=== PATIENT | male | born 1995 | race Caucasian/White ===

== ENCOUNTER 2025-03-26 11:55 | Emergency (ER) | payer MEDICARE | END 2025-03-26 13:17 | disposition short-term general hospital (02) | LOC: NAV ERS 11:55 | DX: I80.8 Phlebitis and thrombophlebitis of other sites (principal); F17.290 Nicotine dependence, other tobacco product, uncomplicated; Z86.73 Personal history of transient ischemic attack (TIA), and cerebral infarction without residual deficits | CPT/HCPCS: 99284 ==